=== PATIENT | male | born 1965 | race Caucasian/White ===

== ENCOUNTER 2025-06-28 14:50 | Emergency (ER) | payer MEDICAID ==
[2025-06-28 15:17] LABS: BASOPHILS ABSOLUTE AUTO 0.03 K/uL (0.00-0.20); BASOPHILS PERCENT AUTO 0.5 % (0.0-2.0); EOSINOPHILS ABSOLUTE AUTO 0.05 K/uL (0.00-0.50); EOSINOPHILS PERCENT AUTO 0.8 % (0.0-5.0); IMMATURE GRAN ABSOLUTE AUTO 0.00 10^3/uL (0.00-0.04); IMMATURE GRAN PERCENT AUTO 0.0 % (0.0-0.4); LYMPHOCYTES ABSOLUTE AUTO 2.47 K/uL (0.50-3.50); LYMPHOCYTES PERCENT AUTO 37.3 % (10.0-50.0); MONOCYTES ABSOLUTE AUTO 0.84 K/uL (0.00-1.00); MONOCYTES PERCENT AUTO 12.7 % (2.0-14.0); NEUTROPHILS ABSOLUTE AUTO 3.23 K/uL (1.40-7.00); NEUTROPHILS PERCENT AUTO 48.7 % (45.0-80.0); PLATELET COUNT,PLT 117 K/uL (150-350); RED BLOOD CELL COUNT 3.88 M/uL (4.33-5.41); RED CELL DISTRIBUTION WIDTH 13.5 % (11.2-14.1); WHITE BLOOD CELL COUNT,WBC 6.6 K/uL (4.0-10.2)
[2025-06-28 15:33] LABS: ALANINE AMINOTRANSFERASE,ALT 13 U/L (12-78); ASPARTATE AMNIOTRANSFERASE,AST 36 U/L (15-37); BILIRUBIN TOTAL 1.5 mg/dL (0.2-1.0); BLOOD UREA NITROGEN,BUN 18 mg/dL (7-18); CARBON DIOXIDE,CO2 30.1 mmol/L (21.0-32.0); CHLORIDE,CL 102 mmol/L (98-107); CREATININE 0.97 mg/dL (0.51-1.17); GLUCOSE RANDOM 109 mg/dL (70-99); POTASSIUM,K 3.6 mmol/L (3.5-5.1); PROTEIN TOTAL,TP 8.4 g/dL (6.4-8.2); SODIUM,NA 138 mmol/L (136-145)
[2025-06-28 15:34] LABS: ESTIMATED GFR 88 mL/min (>=60)
== END 2025-06-28 17:30 ==
LOC: LL.ED 14:50
DX: K76.82 Hepatic encephalopathy (principal); K74.60 Unspecified cirrhosis of liver; Z91.018 Allergy to other foods; Z88.8 Allergy status to other drugs, medicaments and biological substances; Z79.899 Other long term (current) drug therapy; Z79.51 Long term (current) use of inhaled steroids
CPT/HCPCS: 36415; 70450; 80053; 82140; 83735; 85025; 99284; 99285

== ENCOUNTER 2025-07-14 17:38 | Inpatient (IN) | payer MEDICAID ==
[2025-07-14 18:17] LABS: BASOPHILS ABSOLUTE AUTO 0.04 K/uL (0.00-0.20); BASOPHILS PERCENT AUTO 0.6 % (0.0-2.0); EOSINOPHILS ABSOLUTE AUTO 0.07 K/uL (0.00-0.50); EOSINOPHILS PERCENT AUTO 1.0 % (0.0-5.0); IMMATURE GRAN ABSOLUTE AUTO 0.02 10^3/uL (0.00-0.04); IMMATURE GRAN PERCENT AUTO 0.3 % (0.0-0.4); LYMPHOCYTES ABSOLUTE AUTO 2.21 K/uL (0.50-3.50); LYMPHOCYTES PERCENT AUTO 31.2 % (10.0-50.0); MONOCYTES ABSOLUTE AUTO 0.97 K/uL (0.00-1.00); MONOCYTES PERCENT AUTO 13.7 % (2.0-14.0); NEUTROPHILS ABSOLUTE AUTO 3.77 K/uL (1.40-7.00); NEUTROPHILS PERCENT AUTO 53.2 % (45.0-80.0); PLATELET COUNT,PLT 178 K/uL (150-350); RED BLOOD CELL COUNT 3.79 M/uL (4.33-5.41); RED CELL DISTRIBUTION WIDTH 14.0 % (11.2-14.1); WHITE BLOOD CELL COUNT,WBC 7.1 K/uL (4.0-10.2)
[2025-07-14] MEDS: Sodium Chloride 0.9% 10 ML Syringe FLUSH PRN (18:18)
[2025-07-14 18:26] LABS: LACTIC ACID 1.8 mmol/L (0.4-2.0)
[2025-07-14 18:27] LABS: INR 1.3 (0.9-1.1); PTT,PARTIAL THROMBOPLSTIN TIME 32.1 SEC (23.8-34.4)
[2025-07-14 18:35] LABS: ALANINE AMINOTRANSFERASE,ALT 12.0 U/L (12-78); ASPARTATE AMNIOTRANSFERASE,AST 26.0 U/L (15-37); BILIRUBIN TOTAL 1.4 mg/dL (0.2-1.0); BLOOD UREA NITROGEN,BUN 11.0 mg/dL (7-18); CARBON DIOXIDE,CO2 33.0 mmol/L (21.0-32.0); CHLORIDE,CL 99.0 mmol/L (98-107); CREATININE 0.84 mg/dL (0.51-1.17); EST CRCL DRUG DOSING (CG) 73.38 mL/min; GLUCOSE RANDOM 84.0 mg/dL (70-99); POTASSIUM,K 3.2 mmol/L (3.5-5.1); PROTEIN TOTAL,TP 7.3 g/dL (6.4-8.2); SODIUM,NA 139.0 mmol/L (136-145)
[2025-07-14 18:36] LABS: ESTIMATED GFR 99.0 mL/min (>=60)
[2025-07-14 18:37] LABS: ETHANOL BLOOD MEDICAL 0.0 g/dL (0.000-0.080)
[2025-07-14] MEDS: Iopamidol 612 MG/ML 100 ML Bottle IVPUSH STA (19:18)
[2025-07-14] MEDS: Magnesium Sulfate 4 GM/100 mL 4 GM in Premix Bag 1 BAG IV ONE (19:20)
[2025-07-14] MEDS: Potassium Chloride 20 MEQ Tab.ER PO ONE (19:20)
[2025-07-14] MEDS ORDERED: Take Home: Albuterol 6.7 GM Inhaler, 1 Inhaler Pack INH PRN (21:08)
[2025-07-14] MEDS: Lactated Ringers 1,000 ML IV SCH (23:37)
[2025-07-15 07:59] LABS: BASOPHILS ABSOLUTE AUTO 0.05 K/uL (0.00-0.20); BASOPHILS PERCENT AUTO 0.9 % (0.0-2.0); EOSINOPHILS ABSOLUTE AUTO 0.06 K/uL (0.00-0.50); EOSINOPHILS PERCENT AUTO 1.0 % (0.0-5.0); IMMATURE GRAN ABSOLUTE AUTO 0.01 10^3/uL (0.00-0.04); IMMATURE GRAN PERCENT AUTO 0.2 % (0.0-0.4); LYMPHOCYTES ABSOLUTE AUTO 1.67 K/uL (0.50-3.50); LYMPHOCYTES PERCENT AUTO 28.5 % (10.0-50.0); MONOCYTES ABSOLUTE AUTO 0.86 K/uL (0.00-1.00); MONOCYTES PERCENT AUTO 14.7 % (2.0-14.0); NEUTROPHILS ABSOLUTE AUTO 3.20 K/uL (1.40-7.00); NEUTROPHILS PERCENT AUTO 54.7 % (45.0-80.0); PLATELET COUNT,PLT 149 K/uL (150-350); RED BLOOD CELL COUNT 3.45 M/uL (4.33-5.41); RED CELL DISTRIBUTION WIDTH 14.2 % (11.2-14.1); WHITE BLOOD CELL COUNT,WBC 5.9 K/uL (4.0-10.2)
[2025-07-15] MEDS ORDERED: Non-Formulary Medication 1 Each (Magnesium Chloride [Magnesium] 64 MG Tablet) PO SCH (08:00)
[2025-07-15] MEDS ORDERED: LACTULOSE 10 GM/15 ML PO SCH (08:00)
[2025-07-15] MEDS ORDERED: Non-Formulary Medication 1 Each (Rifaximin [Xifaxan] 550 MG Tablet) PO SCH (08:00)
[2025-07-15] MEDS ORDERED: Non-Formulary Medication 1 Each (Fluticasone Propion/Salmeterol [Fluticasone-Salmeterol 10 IH SCH (08:00)
[2025-07-15] MEDS ORDERED: Non-Formulary Medication 1 Each (Ascorbic Acid [Vitamin C] 250 MG Tablet) PO SCH (08:00)
[2025-07-15 08:22] LABS: ALANINE AMINOTRANSFERASE,ALT 12.0 U/L (12-78); ASPARTATE AMNIOTRANSFERASE,AST 25.0 U/L (15-37); BILIRUBIN TOTAL 1.7 mg/dL (0.2-1.0); BLOOD UREA NITROGEN,BUN 10.0 mg/dL (7-18); CARBON DIOXIDE,CO2 33.5 mmol/L (21.0-32.0); CHLORIDE,CL 101.0 mmol/L (98-107); CREATININE 0.82 mg/dL (0.51-1.17); EST CRCL DRUG DOSING (CG) 75.17 mL/min; GLUCOSE RANDOM 95.0 mg/dL (70-99); POTASSIUM,K 3.9 mmol/L (3.5-5.1); PROTEIN TOTAL,TP 6.5 g/dL (6.4-8.2); SODIUM,NA 138.0 mmol/L (136-145)
[2025-07-15 08:33] LABS: ESTIMATED GFR 99.0 mL/min (>=60)
[2025-07-15] MEDS: Cyanocobalamin (Vitamin B12) 1,000 MCG Tab PO SCH (11:48)
[2025-07-15] MEDS: Magnesium Chloride 64 MG Tab.ER PO SCH (11:51)
[2025-07-15] MEDS: buPROPion 150 MG Tab.ER PO SCH (11:51)
[2025-07-15] MEDS: Lactulose Soln 10 GM/15 ML 30 ML UD Cup PO SCH (11:54)
[2025-07-15] MEDS: Formoterol/Mometasone 100-5 MCG 8.8 GM Inhaler INH SCH (11:58)
[2025-07-15] MEDS ORDERED: IRON PO SCH (20:00)
[2025-07-15] MEDS ORDERED: MULTIVIT CALC MINS PO SCH (20:00)
[2025-07-15] MEDS ORDERED: [UNRECOGNIZED DRUG - OTHER] PO SCH (20:00)
[2025-07-15] MEDS ORDERED: FOLIC PO SCH (20:00)
[2025-07-15] MEDS: RIFAXIMIN 550 MG PO SCH (20:01)
[2025-07-16 06:53] LABS: APPEARANCE,URINE SLIGHTLY CLOUDY; GLUCOSE,URINE NEGATIVE (NEGATIVE); OCCULT BLOOD,URINE NEGATIVE (NEGATIVE)
[2025-07-16 08:12] LABS: ALANINE AMINOTRANSFERASE,ALT 8.0 U/L (12-78); ASPARTATE AMNIOTRANSFERASE,AST 26.0 U/L (15-37); BILIRUBIN TOTAL 1.9 mg/dL (0.2-1.0); BLOOD UREA NITROGEN,BUN 9.0 mg/dL (7-18); CARBON DIOXIDE,CO2 31.8 mmol/L (21.0-32.0); CHLORIDE,CL 102.0 mmol/L (98-107); CREATININE 0.84 mg/dL (0.51-1.17); EST CRCL DRUG DOSING (CG) 73.38 mL/min; GLUCOSE RANDOM 95.0 mg/dL (70-99); POTASSIUM,K 4.0 mmol/L (3.5-5.1); PROTEIN TOTAL,TP 6.6 g/dL (6.4-8.2); SODIUM,NA 138.0 mmol/L (136-145)
[2025-07-16 08:14] LABS: ESTIMATED GFR 99.0 mL/min (>=60)
[2025-07-16 08:30] LABS: BASOPHILS ABSOLUTE AUTO 0.03 K/uL (0.00-0.20); BASOPHILS PERCENT AUTO 0.5 % (0.0-2.0); EOSINOPHILS ABSOLUTE AUTO 0.08 K/uL (0.00-0.50); EOSINOPHILS PERCENT AUTO 1.2 % (0.0-5.0); IMMATURE GRAN ABSOLUTE AUTO 0.01 10^3/uL (0.00-0.04); IMMATURE GRAN PERCENT AUTO 0.2 % (0.0-0.4); LYMPHOCYTES ABSOLUTE AUTO 1.80 K/uL (0.50-3.50); LYMPHOCYTES PERCENT AUTO 27.6 % (10.0-50.0); MONOCYTES ABSOLUTE AUTO 0.85 K/uL (0.00-1.00); MONOCYTES PERCENT AUTO 13.0 % (2.0-14.0); NEUTROPHILS ABSOLUTE AUTO 3.76 K/uL (1.40-7.00); NEUTROPHILS PERCENT AUTO 57.5 % (45.0-80.0); PLATELET COUNT,PLT 160 K/uL (150-350); RED BLOOD CELL COUNT 3.43 M/uL (4.33-5.41); RED CELL DISTRIBUTION WIDTH 14.1 % (11.2-14.1); WHITE BLOOD CELL COUNT,WBC 6.5 K/uL (4.0-10.2)
== END 2025-07-16 10:22 | DRG 389 ==
LOC: LL.ED 17:38 → LL.MS 20:30
PROVIDERS: ADMIT Physician Assistant; ATTEND Physician Assistant
DX: K56.609 Unspecified intestinal obstruction, unspecified as to partial versus complete obstruction (principal); I50.22 Chronic systolic (congestive) heart failure; E83.42 Hypomagnesemia; E87.6 Hypokalemia; Z91.018 Allergy to other foods; Z79.51 Long term (current) use of inhaled steroids; Z66 Do not resuscitate; I11.0 Hypertensive heart disease with heart failure; K74.60 Unspecified cirrhosis of liver; E86.0 Dehydration; K76.82 Hepatic encephalopathy; J44.9 Chronic obstructive pulmonary disease, unspecified; Z98.890 Other specified postprocedural states; Z88.8 Allergy status to other drugs, medicaments and biological substances; Z79.899 Other long term (current) drug therapy
CPT/HCPCS: 36415; 74177; 80053; 80307; 81003; 82140; 82150; 83605; 83690; 83735; 85025; 85610; 85730; 86140; 87040; 87428-QW; 94761; 96365; 96375; 99223; 99233; 99239; 99285-25; A9270-GY; J1171; J3475; J7120; Q9967